=== PATIENT | female | born 1975 | race Hispanic/Latino ===

== ENCOUNTER 2017-05-03 13:09 | Observation (INO) | payer OTHER ==
[2017-05-03 14:56] LABS: APPEARANCE,URINE CLEAR (CLEAR); BILIRUBIN,URINE NEGATIVE (NEGATIVE); COLOR,URINE YELLOW (YELLOW); GLUCOSE, URINE (UA) NEGATIVE (NEGATIVE); KETONES,URINE NEGATIVE (NEGATIVE); LEUKOCYTE ESTERASE ,URINE NEGATIVE (NEGATIVE); NITRATE,URINE NEGATIVE (NEGATIVE); OCCULT BLOOD,URINE NEGATIVE (NEGATIVE); PH,URINE 5.5 (5.0-8.0); PROTEIN,URINE NEGATIVE (NEGATIVE); UROBILINOGEN,URINE 0.2 mg/dL (0.2-1.0)
[2017-05-03 15:43] LABS: BASOPHILS % (AUTO) 0.3 % (0.0-5.0); EOSINOPHILS % (AUTO) 1.9 % (0.0-8.0); HEMATOCRIT 40.2 % (36-48); LYMPHOCYTES % (AUTO) 4.8 % (21.0-51.0); MEAN CORPUSCULAR HEMOGLOBIN 28.3 pg (27.0-33.0); MEAN CORPUSCULAR HGB CONC 35.5 g/dL (32.0-36.0); MEAN CORPUSCULAR VOLUME 79.8 fL (79-99); PLATELET COUNT (AUTO) 464 K/uL (130-400); RED BLOOD CELL COUNT(AUTO) 5.04 MIL/uL (4.00-5.50); RED CELL DISTRIBUTION WIDTH 18.8 % (11.0-15.5); WHITE BLOOD COUNT (AUTO) 14.6 K/uL (4.8-10.8)
[2017-05-03 15:57] LABS: CREATININE 0.6 mg/dL (0.5-1.5); POTASSIUM 3.8 mmol/L (3.5-5.1)
[2017-05-03 16:01] LABS: ALBUMIN 4.6 g/dL (3.5-5.0); TOTAL PROTEIN, SERUM 8.7 g/dL (6.0-8.3)
[2017-05-03] MEDS ORDERED: ONDANSETRON HCL 4 MG/2 ML VIAL ONE (16:03)
[2017-05-03] MEDS ORDERED: DICYCLOMINE HCL 10 MG/ML 2ML AMP IM ONE (16:03)
[2017-05-03] MEDS ORDERED: SODIUM CHLORIDE 0.9% 1000ML 1,000 ML IV ONE (16:03)
[2017-05-03] MEDS ORDERED: KETOROLAC TROMETHAMINE 30MG/ML ONE (16:03)
[2017-05-03] MEDS ORDERED: ACETAMINOPHEN 325 MG TAB PO PRN ×2 (16:30)
[2017-05-03] MEDS ORDERED: ONDANSETRON HCL 4 MG/2 ML VIAL IV PRN (16:30)
[2017-05-03] MEDS ORDERED: GUAIFENESIN-DM 200/20 MG 10 ML PO PRN (16:30)
[2017-05-03] MEDS ORDERED: MEPERIDINE-PF 25 MG/ML SYG IVP PRN (16:30)
[2017-05-03] MEDS ORDERED: MAG HYDROX/AL HYDROX/SIMETH ES 30 ML SUSP UDCUP PO PRN (16:30)
[2017-05-03] MEDS ORDERED: CEFOXITIN SODIUM 2 GM VIAL ONE (16:55)
[2017-05-03] MEDS ORDERED: SODIUM CHLORIDE 0.9% 50 ML IV ONE (16:56)
[2017-05-03 17:37] VITALS: BP 146/86
[2017-05-03] MEDS ORDERED: CHOL200016 PO (17:54)
[2017-05-03] MEDS ORDERED: FERR159T2 PO (17:55)
[2017-05-03] MEDS ORDERED: CEFOXITIN SODIUM 1 GM VIAL IVP SCH (18:00)
[2017-05-03] MEDS: SODIUM CHLORIDE 0.9% 1000ML 1,000 ML IV SCH (18:13)
[2017-05-03 20:00] VITALS: BP 133/78
[2017-05-03] MEDS: FAMOTIDINE/PF 20 MG/2 ML VIAL IV SCH (21:22)
[2017-05-03] MEDS: CEFOXITIN SODIUM 1 GM VIAL IVP SCH (23:25)
[2017-05-04] VITALS (21 sets, daily range): BP systolic 99–123; BP diastolic 34–82
[2017-05-04] MEDS ORDERED: LIDOCAINE HCL-MPF 1% 2ML VIAL IVP PRN (00:15)
[2017-05-04] MEDS ORDERED: POTASSIUM CHLORIDE 10% ELIXIR 20 MEQ/15 ML UDCUP PO PRN (00:15)
[2017-05-04] MEDS ORDERED: POTASSIUM CHLORIDE 20MEQ/100ML 100 ML IV PRN (00:15)
[2017-05-04] MEDS: SODIUM CHLORIDE 0.9% 1000ML 1,000 ML IV SCH ×2 (03:34→23:19)
[2017-05-04] MEDS: CEFOXITIN SODIUM 1 GM VIAL IVP SCH ×4 (05:16→23:19)
[2017-05-04 06:55] LABS: HEMATOCRIT 30.4 % (36-48); MEAN CORPUSCULAR HEMOGLOBIN 28.7 pg (27.0-33.0); MEAN CORPUSCULAR HGB CONC 36.8 g/dL (32.0-36.0); MEAN CORPUSCULAR VOLUME 78.1 fL (79-99); NUCLEATED RED BLOOD CELLS 0.1 % (0.0-0.19); PLATELET COUNT (AUTO) 390 K/uL (130-400); RED BLOOD CELL COUNT(AUTO) 3.89 MIL/uL (4.00-5.50); RED CELL DISTRIBUTION WIDTH 18.6 % (11.0-15.5); WHITE BLOOD COUNT (AUTO) 7.4 K/uL (4.8-10.8)
[2017-05-04] MEDS ORDERED: ACETAMINOPHEN-CODEINE 300/30MG TAB PO PRN ×4 (08:15→12:15)
[2017-05-04 08:47] LABS: ALBUMIN 3.3 g/dL (3.5-5.0); BILIRUBIN,TOTAL 2.7 mg/dL (0.2-1.0); CREATININE 0.6 mg/dL (0.5-1.5); POTASSIUM 3.5 mmol/L (3.5-5.1); TOTAL PROTEIN, SERUM 6.6 g/dL (6.0-8.3)
[2017-05-04] MEDS: FAMOTIDINE/PF 20 MG/2 ML VIAL IV SCH ×2 (09:41→20:46)
[2017-05-04] MEDS ORDERED: LACTATED RINGERS 1000ML 1,000 ML IV ONE (10:07)
[2017-05-04] MEDS ORDERED: SUCCINYLCHOLINE 200MG/10ML SYR ONE (11:12)
[2017-05-04] MEDS ORDERED: LIDOCAINE PF 2% 5ML ABBOJECT ONE (11:12)
[2017-05-04] MEDS ORDERED: GLYCOPYRROLATE 0.2 MG/ML 5 ML VIAL ONE (11:12)
[2017-05-04] MEDS ORDERED: ONDANSETRON HCL 4 MG/2 ML VIAL ONE (11:12)
[2017-05-04] MEDS ORDERED: DEXAMETHASONE SOD PHOSPHATE 10MG/ML 1ML VIAL ONE (11:12)
[2017-05-04] MEDS ORDERED: PROPOFOL 10 MG/ML 20ML VIAL IV ONE (11:13)
[2017-05-04] MEDS ORDERED: FENTANYL CITRATE PF 50 MCG/1 ML 2ML VIAL ONE (11:13)
[2017-05-04] MEDS ORDERED: MIDAZOLAM HCL 1 MG/ML 2ML VIAL ONE (11:13)
[2017-05-04] MEDS ORDERED: HEPARIN SODIUM 1000UNIT/ML 10ML VIAL ONE (11:26)
[2017-05-04] MEDS ORDERED: SODIUM CHLORIDE 0.9% 1000ML 1,000 ML IV SCH (12:04)
[2017-05-04] MEDS ORDERED: MEPERIDINE-PF 50 MG/ML SYG ONE (12:23)
[2017-05-04] MEDS ORDERED: MORPHINE SULFATE 10 MG/ML 1ML SYG ONE (12:42)
[2017-05-04] MEDS: KETOROLAC TROMETHAMINE 15MG/ML IV PRN ×2 (15:47→23:35)
[2017-05-04] MEDS: POTASSIUM CHLORIDE 20 MEQ ERTAB PO PRN ×2 (18:21→20:50)
[2017-05-05 03:26] VITALS: BP 123/78
[2017-05-05] MEDS: CEFOXITIN SODIUM 1 GM VIAL IVP SCH ×2 (04:52→11:12)
[2017-05-05] MEDS: KETOROLAC TROMETHAMINE 15MG/ML IV PRN (05:03)
[2017-05-05 05:15] LABS: CREATININE 0.5 mg/dL (0.5-1.5); POTASSIUM 3.8 mmol/L (3.5-5.1)
[2017-05-05 07:50] VITALS: BP 125/76
[2017-05-05] MEDS: FAMOTIDINE/PF 20 MG/2 ML VIAL IV SCH (09:36)
[2017-05-05] MEDS ORDERED: ACET1TAB12 PO (09:46)
[2017-05-05 11:15] VITALS: BP 121/76
== END 2017-05-05 15:30 | disposition home or self-care (01) ==
LOC: EDH 13:09 → EDHIP 16:24 → 3BH 17:10 → WSH 05-04 11:20
PROVIDERS: ADMIT Family Medicine; ATTEND Family Medicine
DX: K80.00 Calculus of gallbladder with acute cholecystitis without obstruction (principal); E66.01 Morbid (severe) obesity due to excess calories; Z79.899 Other long term (current) drug therapy; Z98.51 Tubal ligation status
CPT/HCPCS: 36415 ×3; 47562; 76705; 80048; 80053 ×2; 81003; 81025; 83690; 85025; 85027; 87804 ×2; 88304; 93005; 96374; 96375 ×2; 96376 ×2; 99285; A4218 ×7; A4450; A4649; C1769 ×4; G0378 ×47; J0330; J0500; J0694 ×7; J1100; J1644; J1885 ×4; J2001; J2175; J2250; J2270; J2405 ×3; J2704; J3010; J3490 ×5; J7030 ×3; J7120